=== PATIENT | male | born 1940 | race African-American/Black ===

== ENCOUNTER 2018-11-03 09:08 | Emergency (ER) | payer OTHER ==
[2018-11-03 09:13] VITALS: BMI 30.8
[2018-11-03] MEDS ORDERED: SODIUM CHLORIDE 500 ML IV STA (09:25)
--- NOTE | 2018-11-03 09:31 | PDOC ---
History of Present Illness - General Chief Complaint: Blood Sugar Problem Stated Complaint: HIGH BLOOD SUGAR Time Seen by Provider: 11/03/18 09:09 History Source: Patient Exam Limitations: No Limitations - History of Present Illness Initial Comments: 11/03/18 09:27 78-year-old male with history of hypertension, diabetes, hyperlipidemia, hypothyroidism, type 2 diabetes but on insulin, 30 units of Lantus at night presents to the emergency department for hyperglycemia. The patient reports that he isn't adherent to his medications and his sugars are typically in the low 100s. However, in the last few days, particularly today, the patient noted a gradual increasing glucose up to 180s. This is despite taking his medications and without adjustments to his dosages. He denies any recent illnesses, fevers, chills, cough, vomiting, diarrhea. Patient is also not endorsing any symptoms of polyuria or polydipsia. The patient is however starting to fast because he is preparing for a colonoscopy tomorrow. The patient's concerned as his sugars have crept up to 220s despite not eating and wanted to get checked. Past History - Past Medical History Allergies/Adverse Reactions: Allergies Allergy/AdvReac Type Severity Reaction Status Date / Time No Known Allergies Allergy Verified 11/03/18 09:09 Home Medications: Ambulatory Orders Carvedilol 25 mg PO BID 07/29/12 Furosemide [Lasix -] 40 mg PO DAILY 07/29/12 Insulin Glargine,Hum.rec.anlog [Lantus (10mL VIAL) -] 12 units SQ HS 07/29/12 Levothyroxine [Synthroid -] 137 mcg PO DAILY 07/29/12 Losartan/Hydrochlorothiazide [Losartan-Hctz 100-25 mg Tablet] 1 each PO DAILY Nifedipine ER [Procardia XL -] 60 mg PO BID 07/29/12 Pioglitazone HCl [Actos] 15 mg PO DAILY 07/29/12 Simvastatin [Zocor] 80 mg PO DAILY 07/29/12 metFORMIN HCL [Glucophage -] 500 mg PO DAILY 07/29/12 Iron Ps Complex/B12/Folic Acid [Poly-Iron 150 Forte Capsule] 1 each PO DAILY Aspirin [Aspirin EC] 81 mg PO DAILY 10/30/18 Glimepiride 4 mg PO DAILY 10/31/18 Hydralazine HCl 25 mg PO BID 10/31/18 Potassium Chloride 20 meq PO DAILY 10/31/18 Cholecalciferol (Vitamin D3) [Vitamin D3] 2 cap PO DAILY 11/03/18 Polyethylene Glycol 3350 [Miralax (For Daily Use) -] 17 gm PO DAILY 11/03/18 Anemia: Yes Asthma: No Cancer: Yes (PROSTATE CANCER S/P RADIATION THERAPY) Cardiac Disorders: No CVA: No COPD: No CHF: No Dementia: No Diabetes: Yes (IDDM) GI Disorders: Yes (SMALL EROSIONS IN THE FUNDUS) Disorders: No HTN: Yes Hypercholesterolemia: Yes Liver Disease: No Seizures: No Thyroid Disease: Yes - Surgical History Abdominal Surgery: No Appendectomy: No Cardiac Surgery: No Cholecystectomy: No Lung Surgery: No Neurologic Surgery: No Orthopedic Surgery: No - Suicide/Smoking/Psychosocial Hx Smoking History: Former smoker Have you smoked in the past 12 months: No If you are a former smoker, when did you quit?: 40 YEARS AGO Information on smoking cessation initiated: No Hx Alcohol Use: No Drug/Substance Use Hx: No Substance Use Type: None Hx Substance Use Treatment: No Review of Systems - Review of Systems Able to Perform ROS?: Yes Comments:: 11/03/18 09:29 GENERAL/CONSTITUTIONAL: [No fever or chills. No weakness. No weight change.] HEAD, EYES, EARS, NOSE AND THROAT: [No change in vision. No ear pain or discharge. No sore throat.] CARDIOVASCULAR: [No chest pain or shortness of breath.] RESPIRATORY: [No cough, wheezing, or hemoptysis.] GASTROINTESTINAL: [No nausea, vomiting, diarrhea or constipation. No rectal bleeding.] GENITOURINARY: [No dysuria, frequency, or change in urination.] MUSCULOSKELETAL: [No joint or muscle swelling or pain. No neck or back pain.] SKIN AND BREASTS: [No rash or easy bruising.] NEUROLOGIC: [No headache, vertigo, loss of consciousness, or loss of sensation.] PSYCHIATRIC: [No depression or anxiety.] ENDOCRINE: [No increased thirst. No abnormal weight change.] HEMATOLOGIC/LYMPHATIC: [No anemia, easy bleeding, or history of blood clots.] ALLERGIC/IMMUNOLOGIC: [No hives or skin allergy. No latex allergy.] *Physical Exam - Vital Signs Last Vital Signs Temp Pulse Resp BP Pulse Ox 98 F 76 18 151/83 99 11/03/18 09:08 11/03/18 09:08 11/03/18 09:08 11/03/18 09:08 11/03/18 09:08 - Physical Exam Comments: 11/03/18 09:29 GENERAL: Awake, alert, and fully oriented, in no acute distress HEAD: No signs of trauma EYES: EOMI, sclera anicteric, conjunctiva clear ENT: Auricles normal inspection, hearing grossly normal, nares patent NECK: Normal ROM, supples LUNGS: Breath sounds equal, clear to auscultation bilaterally. No wheezes, and no crackles HEART: Regular rate and rhythm, normal S1 and S2, no murmurs, rubs or gallops ABDOMEN: Soft, nontender,No guarding, no rebound. No masses EXTREMITIES: Normal range of motion, no edema. No clubbing or cyanosis. No cords, erythema, or tenderness NEUROLOGICAL: Cranial nerves II through XII grossly intact. Normal speech, normal gait SKIN: Warm, Dry, normal turgor, no rashes or lesions noted. Heart Score/ECG Review #1 ECG reviewed & interpreted by me at: 09:50 11/03/18 10:04 NSR 70, LVH, no std/shani, normal axis, normal intervals, QTC 425 msec ED Treatment Course - LABORATORY CBC & Chemistry Diagram: 11/03/18 09:45 11/03/18 09:45 Medical Decision Making - Medical Decision Making 11/03/18 09:31 Vital Signs Temp Pulse Resp BP Pulse Ox 98 F 76 18 151/83 99 11/03/18 09:08 11/03/18 09:08 11/03/18 09:08 11/03/18 09:08 11/03/18 09:08 This is a well-appearing 78-year-old gentleman with elevated glucose. Patient appears comfortable and not in close small respirations. Less likely to be diabetic ketoacidosis. However, this could potentially be progression of the patient's diabetes. However, with the changes in the diet, this could potentially be related to food intake. We'll however, check labs including acetone, creatinine and other metabolic etiologies. Give IV fluids. If the workup is negative, we'll have the patient follow-up as an outpatient in regards to diabetes management. 11/03/18 10:45 CBC, BMP 11/03/18 09:45 11/03/18 09:45 CMP Sodium 137 mmol/L (136-145) 11/03/18 09:45 Potassium 3.6 mmol/L (3.5-5.1) 11/03/18 09:45 Chloride 95 mmol/L (98-107) L 11/03/18 09:45 Carbon Dioxide 32 mmol/L (21-32) 11/03/18 09:45 Anion Gap 10 MMOL/L (8-16) 11/03/18 09:45 BUN 24.0 mg/dl (7-18) H 11/03/18 09:45 Creatinine 1.2 mg/dl (0.55-1.3) 11/03/18 09:45 Est GFR (CKD-EPI)AfAm 66.26 11/03/18 09:45 Est GFR (CKD-EPI)NonAf 57.17 11/03/18 09:45 POC Glucometer 219 UNITS (80-120) 11/03/18 09:38 Random Glucose 221 mg/dl (74-106) H 11/03/18 09:45 Calcium 9.9 mg/dl (8.5-10) 11/03/18 09:45 Total Bilirubin 0.7 mg/dl (0.2-1) 11/03/18 09:45 AST 16 U/L (15-37) 11/03/18 09:45 ALT 10 U/L (13-61) L 11/03/18 09:45 Alkaline Phosphatase 55 U/L (45-117) 11/03/18 09:45 Troponin I 0.03 ng/ml (0.00-0.05) 11/03/18 09:45 Total Protein 7.3 g/dl (6.4-8.2) 11/03/18 09:45 Albumin 4.2 g/dl (3.4-5.0) 11/03/18 09:45 Urine Test Results Urine Color Yellow 11/03/18 10:00 Urine Appearance Clear 11/03/18 10:00 Urine pH 5.5 (4.5-8) 11/03/18 10:00 Urine Protein Trace (NEGATIVE) 11/03/18 10:00 Urine Glucose (UA) 1+ (NEGATIVE) 11/03/18 10:00 Urine Ketones Negative (NEGATIVE) 11/03/18 10:00 Urine Blood Negative (NEGATIVE) 11/03/18 10:00 Urine Nitrite Negative (NEGATIVE) 11/03/18 10:00 Urine Bilirubin Negative (NEGATIVE) 11/03/18 10:00 Ur Leukocyte Esterase Negative (NEGATIVE) 11/03/18 10:00 The patient's glucose is 221. Patient's BUN/creatinine ratio is 24-1.2 which may suggest some dehydration. It is warm and humid outside with temperature approximately 100F. I had given 1 L of IV fluids. I had spoken with the patient and the patient's . It may be possible that this may be secondary to the progression of the patient's diabetes. However, given that the patient's diet is change secondary to colonoscopy tomorrow. I encouraged the patient to drink plenty of fluids and to follow with his colonoscopy tomorrow. I given a copy the results the patient to follow-up with his robot programmer. At this time , there be no changes made to his diabetes management but the patient should check his sugars. I advised that he call his doctor for follow-up. If his sugars become extraordinarily elevated or hypoglycemia, the patient should return to the ER. I discussed the physical exam findings, ancillary test results and final diagnoses with the patient. I answered all of the patient's questions. The patient was satisfied with the care received and felt comfortable with the discharge plan and treatment plan. The patient will call their primary care physician within 24 hours to arrange follow-up and will return to the Emergency Department with any new, persistant or worsening symptoms. *DC/Admit/Observation/Transfer Diagnosis at time of Disposition: Hyperglycemia - Discharge Dispostion Disposition: HOME Condition at time of disposition: Stable Decision to Admit order: No - Referrals Referrals: Sumeet Chavez MD [Primary Care Provider] - Tracee Boothe MD [Staff Physician] - - Patient Instructions Printed Discharge Instructions: DI for Hyperglycemia -- Adult Additional Instructions: You have been given a copy of results. Please continue to follow your patent paralegal instructions for colonoscopy tomorrow. Please drink plenty of fluids and rest. It is important to call your robot programmer to schedule an outpatient follow-up this week. If your sugars are too low or extraordinarily high, please call your doctor or return to the ER. - Post Discharge Activity
[2018-11-03 10:05] LABS: ACETONE SERUM NEGATIVE (NEGATIVE)
[2018-11-03 10:08] LABS: BASO % 0.2 % (0-2.0); EOS % 0.2 % (0-4.5); HEMATOCRIT 38.5 % (35.4-49); HEMOGLOBIN 12.7 GM/dl (11.7-16.9); LYMPH % 27.5 % (8-40); MCH 30.4 pg (25.7-33.7); MCHC 33.1 g/dl (32.0-35.9); MEAN CELL VOLUME 91.9 fl (80-96); MEAN PLT VOLUME 8.3 fl (7.5-11.1); MONO % 8.6 % (3.8-10.2); NEUT % 63.5 % (42.8-82.8); PLATELET COUNT 269 K/MM3 (134-434); RBC 4.19 M/mm3 (4.00-5.60); RDW 12.6 % (11.9-15.9); WHITE BLOOD COUNT 4.2 K/mm3 (4.0-10.8)
[2018-11-03 10:11] LABS: ALBUMIN 4.2 g/dl (3.4-5.0); ALK PHOS 55 U/L (45-117); BILIRUBIN,TOTAL 0.7 mg/dl (0.2-1); CREATININE 1.2 mg/dl (0.55-1.3); GLUCOSE,RANDOM 221 mg/dl (74-106); SGOT/AST 16 U/L (15-37); SGPT/ALT 10 U/L (13-61); TOT PROT 7.3 g/dl (6.4-8.2)
[2018-11-03 10:17] LABS: ANION GAP 10 MMOL/L (8-16); CALCIUM 9.9 mg/dl (8.5-10); CHLORIDE 95 mmol/L (98-107); CO2 32 mmol/L (21-32); POTASSIUM 3.6 mmol/L (3.5-5.1); SODIUM 137 mmol/L (136-145)
[2018-11-03 11:17] VITALS: BP 135/77; PULSE 62; TEMP 97.8
--- NOTE | 2018-11-03 17:39 | EKG ---
Test Reason : Blood Pressure : / mmHG Vent. Rate : 070 BPM Atrial Rate : 070 BPM P-R Int : 192 ms QRS Dur : 092 ms QT Int : 394 ms P-R-T Axes : 043 -20 -02 degrees QTc Int : 425 ms NORMAL SINUS RHYTHM MINIMAL VOLTAGE CRITERIA FOR LVH, MAY BE NORMAL VARIANT BORDERLINE ECG NO PREVIOUS ECGS AVAILABLE Confirmed by MESFIN DE DIOS MD ([id number]) on 11/03/2018 5:39:39 PM Referred By: CHRISTIANO LACKEY Confirmed By:MESFIN DE DIOS MD
== END 2018-11-03 11:15 | disposition home or self-care (01) ==
LOC: FER 09:08
PROC: 3E0337Z Introduction of Electrolytic and Water Balance Substance into Peripheral Vein, Percutaneous Approach (ICD-10-PCS; principal; 2018-11-03)
DX: E11.65 Type 2 diabetes mellitus with hyperglycemia (principal); E78.5 Hyperlipidemia, unspecified; I10 Essential (primary) hypertension; E03.9 Hypothyroidism, unspecified; Z79.4 Long term (current) use of insulin; Z85.46 Personal history of malignant neoplasm of prostate
CPT/HCPCS: 36415; 80053; 81003; 82009; 82962; 84484; 85025; 93005; 99284-25

== ENCOUNTER 2018-11-04 08:55 | Day surgery (SDC) | payer OTHER ==
[2018-11-04 09:33] VITALS: TEMP 98.3; BMI 30.8
[2018-11-04] MEDS ORDERED: LIDOCAINE HCL/PF 2% SDV 5ML VIAL ONE (11:15)
[2018-11-04] MEDS ORDERED: PROPOFOL 20 ML ONE ×2 (11:15)
[2018-11-04 12:37] VITALS: BP 124/68; PULSE 70
--- NOTE | 2018-11-06 16:17 | PATH ---
Surgical Pathology Report Patient Name: STEPHANIE MACIAS [facility]. Rec. #: [id number] /Age/Gender: 1940 (Age: 78) / M Account: [id number] Location: [facility] Taken: 11/04/2018 Received: 11/04/2018 Reported: 11/06/2018 Physicians: Danielito Charles M.D. Specimen(s) Received BX POLYP RIGHT COLON Clinical History History of polyps, constipation Postoperative diagnosis: Colon polyp Final Diagnosis RIGHT COLON, POLYP, BIOPSY: TUBULAR ADENOMA. Electronically Signed Isabelle Hackett M.D. Gross Description Received in formalin, labeled "biopsy polyp right colon" is a sanchez, irregular portion of soft tissue measuring 0.3 cm. in greatest dimension. The specimen is submitted in toto in one cassette. 11/05/201811/05/2018
== END 2018-11-04 12:30 | disposition home or self-care (01) ==
LOC: FASU-ENDO 08:55
PROVIDERS: ATTEND Internal Medicine Gastroenterology
PROC: 0DBK8ZX Excision of Ascending Colon, Via Natural or Artificial Opening Endoscopic, Diagnostic (ICD-10-PCS; principal; 2018-11-04 11:23)
DX: Z86.010 Personal history of colon polyps (principal); D12.2 Benign neoplasm of ascending colon
CPT/HCPCS: 82962; 88305-TC